=== PATIENT | male | born 1980 | race American Indian/Alaskan Native ===

== ENCOUNTER 2018-06-13 08:55 | Emergency (ER) | payer SELFPAY ==
--- NOTE | 2018-06-13 11:40 | Emergency Department Report ---
ED Headache HPI - General Chief Complaint: Headache Stated Complaint: MIGRANE FOR 2WKS/PAIN Time Seen by Provider: 06/13/18 11:28 Source: patient, family Exam Limitations: no limitations - History of Present Illness Initial Comments: She complained headache over the last 2 weeks that has been getting worse. She says that she she has light sensitivity and she is to be wearing sunglasses. Denies any nausea or vomiting. Headache is located on the right side of her head at her jehovah's witness and it is throbbing. She said it is 15/10 pain. She says she has a PCP but she could not get into see her primary care so she decided to come to the hospital. Patient reports that she has not had a headache in the past and that she is having some dizziness. No alleviating or exacerbating factor. She took [id number] medicine without any relief. Denies any numbness or tingling to extremities. Timing/Duration: increasing, waxing and waning, other (2 weeks) Quality: severe, achy, throbbing Head Injury Location: temporal (right jehovah's witness) Recent Head Trauma: no recent headache/trauma Modifying Factors: improves with: exposure to light, movement Associated Symptoms: vision changes (sensitivity to light). denies: confusion, fatigue, facial pain, flushing, loss of consciousness, nausea/vomiting, nasal congestion, nasal drainage, numbness in legs/feet, rash, seizures, sinus infection, stiff neck, weakness Allergies/Adverse Reactions: Allergies No Known Allergies Allergy (Unverified 06/13/18 11:41) Home Medications: Ambulatory Orders Acetaminophen/Codeine [Tylenol /Codeine # 3 tab] 1 tab PO Q6H PRN #14 tab Ibuprofen [Motrin] 800 mg PO Q8HR PRN #15 tablet 06/13/18 ED Review of Systems ROS: Stated complaint: MIGRANE FOR 2WKS/PAIN Other details as noted in HPI Constitutional: denies: chills, fever Eyes: other (sensitivity to light). denies: eye pain, eye discharge, vision change ENT: denies: ear pain, throat pain, congestion Respiratory: denies: cough, shortness of breath, SOB with exertion, SOB at rest , wheezing Cardiovascular: denies: chest pain, palpitations, edema, syncope Gastrointestinal: denies: abdominal pain, nausea, vomiting, diarrhea, hematemesis, hematochezia Musculoskeletal: denies: back pain, joint swelling, arthralgia, myalgia Skin: denies: rash, lesions Neurological: headache. denies: weakness, numbness, paresthesias, confusion, abnormal gait Psychiatric: anxiety. denies: depression ED Past Medical Hx - Past Medical History Previous Medical History?: No - Surgical History Past Surgical History?: Yes Hx Coronary Stent: No Hx Open Heart Surgery: No Hx Pacemaker: No Hx Internal Defibrillator: No Hx Cholecystectomy: No Hx Appendectomy: No Hx Breast Surgery: Yes Additional Surgical History: Plastic surgery - Family History Family history: hypertension - Social History Smoking Status: Never Smoker Substance Use Type: None - Medications Home Medications: Home Medications Medication Instructions Recorded Confirmed Last Taken Type Acetaminophen/Codeine [Tylenol 1 tab PO Q6H PRN #14 tab 06/13/18 Unknown Rx /Codeine # 3 tab] Ibuprofen [Motrin] 800 mg PO Q8HR PRN #15 tablet 06/13/18 Unknown Rx ED Physical Exam - General Limitations: No Limitations General appearance: alert, in no apparent distress - Head Head exam: Present: atraumatic, normocephalic, normal inspection - Expanded Head Exam Expanded Head exam: Absent: laceration, abrasion, contusion, hematoma, racoon eyes, orlando's sign, general tenderness, tenderness of temporal artery, CSF rhinorrhea , CSF otorrhea - Eye Eye exam: Present: normal appearance, PERRL, EOMI. Absent: nystagmus, periorbital swelling, periorbital tenderness Pupils: Present: normal accommodation - ENT ENT exam: Present: normal exam, normal orophraynx, mucous membranes moist, TM's normal bilaterally, normal external ear exam - Neck Neck exam: Present: normal inspection, full ROM. Absent: tenderness, lymphadenopathy - Respiratory Respiratory exam: Present: normal lung sounds bilaterally. Absent: respiratory distress, chest wall tenderness - Cardiovascular Cardiovascular Exam: Present: regular rate, normal rhythm, normal heart sounds. Absent: systolic murmur, diastolic murmur - GI/Abdominal GI/Abdominal exam: Present: soft, normal bowel sounds. Absent: distended, tenderness, guarding, rebound, rigid - Extremities Exam Extremities exam: Present: normal inspection, full ROM, normal capillary refill , other (No cce. + 2 pulses in all extremities, no neurovascular compromise). Absent: tenderness, pedal edema, joint swelling, calf tenderness - Back Exam Back exam: Present: normal inspection, full ROM. Absent: tenderness - Neurological Exam Neurological exam: Present: alert, oriented X3, normal gait, reflexes normal. Absent: motor sensory deficit - Expanded Neurological Exam Expanded Neurological exam: Absent: innattentive, memory loss-remote event, memory loss- recent event, ataxia, receptive aphasia, expressive aphasia, total aphasia, tremor, protecting the airway Patient oriented to: Present: person, place, time Speech: Present: fluid speech Cranial nerves: EOM's Intact: Normal, Gag Reflex: Normal, Tongue Deviation: Normal, Nystagmus: Normal, Facial Sensation: Normal Cerebellar function: Romberg: Normal Upper motor neuron: Pronator Drift: Normal, Sensory Extinction: Normal Sensory exam: Upper Extremity Light Touch: Normal, Upper Extremity Temperature: Normal, UE 2 Point Discrimination: Normal, Lower Extremity Light Touch: Normal, Lower Extremity Temperature: Normal, LE 2 Point Discrimination: Normal Motor strength exam: RUE: 5, LUE: 5, RLE: 5, LLE: 5 Best Eye Response ([place]): (4) open spontaneously Best Motor Response ([place]): (6) obeys commands Best Verbal Response ([place]): (5) oriented Morgan Total: 15 - Psychiatric Psychiatric exam: Present: normal affect, normal mood - Skin Skin exam: Present: warm, dry, intact, normal color. Absent: rash ED Course Vital Signs 06/13/18 06/13/18 06/13/18 09:08 12:01 12:02 Temperature 98.1 F Pulse Rate 74 Respiratory 18 16 16 Rate Blood Pressure 132/91 Blood Pressure [Right] O2 Sat by Pulse 98 Oximetry 06/13/18 06/13/18 06/13/18 12:32 13:01 14:20 Temperature Pulse Rate 63 Respiratory 18 18 18 Rate Blood Pressure Blood Pressure 118/92 [Right] O2 Sat by Pulse 98 Oximetry - Reevaluation(s) Reevaluation #1: 06/13/18 14:06 Patient received Fioricet 2 tablets by mouth, Decadron 10 mg IM and Toradol 60 mg IM in emergency room. She voices her pain has gone down. Reevaluation #2: 06/13/18 14:09 Patient reports that she still had headache so she was given [place] 5/325 2 tablets by mouth. ED Medical Decision Making - Radiology Data Radiology results: report reviewed CT scan of the head and brain without contrast dictated by radiologist and report reviewed by myself. Please see report below Patient: KRISTINA HOLLAND MR#: [id number] : 1980 Acct:[id number] Age/Sex: 37 / M ADM Date: 06/13/18 Loc: ED Attending Dr: Ordering Physician: MICKEY KUMAR Date of Service: 06/13/18 Procedure(s): CT head/brain wo con Accession Number(s): [id number] cc: MICKEY KUMAR FINAL REPORT EXAM: CT HEAD/BRAIN WO CON HISTORY: headache, nausea TECHNIQUE: CT of the head was performed without intravenous contrast. PRIORS: None. FINDINGS: The ventricles are normal in shape and position. The ventricles are nondilated. No intracranial hemorrhage, mass, mass effect, midline shift or evidence of acute ischemic infarct. The basilar cisterns are patent. The paranasal sinuses are clear. The extracranial soft tissues demonstrate no abnormality. The calvarium is intact. The orbits are intact. The mastoid air cells are clear. IMPRESSION: No acute intracranial abnormality. Transcribed By: MG Dictated By: OKSANA KHAN MD Electronically Authenticated By: OKSANA KHAN MD Signed Date/Time: 06/13/181318 DD/ 18 TD/TT: 06/13/181318 - Medical Decision Making 37-year-old female here report that she is having headache and that she try to make an appointment with her primary care doctor but she cannot get in today so she came to the emergency room. Diagnostics: CT scan of the head and brain without contrast with negative findings. This was dictated per radiologist's report reviewed myself. See detailed report in radiology section Assessment/plan 1: Headache -better after Fioricet 2 tablets by mouth, Decadron 10 mg IM and 5/ 325 2 tablets by mouth. Patient's given information on her CT scan, medication, diagnosis and need to follow up with her primary care and also neurologist. Patient voiced understanding and discharged home with her family in stable condition with prescription for Tylenol 3 and ibuprofen - Differential Diagnosis intracranial abnormality, sinusitis, simple headache Critical care attestation.: If time is entered above; I have spent that time in minutes in the direct care of this critically ill patient, excluding procedure time. ED Disposition Clinical Impression: Headache Qualifiers: Headache type: unspecified Headache chronicity pattern: unspecified pattern Intractability: not intractable Qualified Code(s): R51 - Headache Disposition: DC- TO HOME OR SELFCARE Is pt being admited?: No Does the pt Need Aspirin: No Condition: Stable Instructions: Acute Headache (ED) Additional Instructions: increase your fluid intake please do not drive or operate heavy [employer] while taking tylenol #3 Prescriptions: Acetaminophen/Codeine [Tylenol /Codeine # 3 tab] 1 tab PO Q6H PRN #14 tab PRN Reason: moderate to severe pain Ibuprofen [Motrin] 800 mg PO Q8HR PRN #15 tablet PRN Reason: pain Referrals: AZRA MATUTE MD [Staff Physician] - 06/15/18 PRIMARY CAREMD [Primary Care Provider] - 06/15/18
[2018-06-13] MEDS ORDERED: DECADRON IV STA (11:42)
[2018-06-13] MEDS ORDERED: FIORICET PO ONE (11:43)
[2018-06-13] MEDS ORDERED: TORADOL IM ONE (11:43)
--- NOTE | 2018-06-13 13:20 | Cat Scan Report ---
FINAL REPORT EXAM: CT HEAD/BRAIN WO CON HISTORY: headache, nausea TECHNIQUE: CT of the head was performed without intravenous contrast. PRIORS: None. FINDINGS: The ventricles are normal in shape and position. The ventricles are nondilated. No intracranial hemorrhage, mass, mass effect, midline shift or evidence of acute ischemic infarct. The basilar cisterns are patent. The paranasal sinuses are clear. The extracranial soft tissues demonstrate no abnormality. The calvarium is intact. The orbits are intact. The mastoid air cells are clear. IMPRESSION: No acute intracranial abnormality.
[2018-06-13] MEDS ORDERED: NORCO 5/325 PO ONE (14:08)
[2018-06-13 14:22] VITALS: BP 118/92
== END 2018-06-13 14:23 | disposition home or self-care (01) ==
LOC: ED 08:55
DX: R51 Headache (principal); H53.71 Glare sensitivity; F41.9 Anxiety disorder, unspecified
CPT/HCPCS: 70450; 96372; 96374; 99283; J1100; J1885

== ENCOUNTER 2021-03-13 15:58 | Emergency (ER) | payer SELFPAY ==
[2021-03-13 17:36] VITALS: BP 145/98
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
== END 2021-03-13 18:12 | disposition home or self-care (01) ==
LOC: ED 15:58
DX: S16.1XXA Strain of muscle, fascia and tendon at neck level, initial encounter (principal); Z98.890 Other specified postprocedural states; Z79.899 Other long term (current) drug therapy; V49.49XA Driver injured in collision with other motor vehicles in traffic accident, initial encounter; Y92.410 Unspecified street and highway as the place of occurrence of the external cause; Y93.89 Activity, other specified; Y99.8 Other external cause status
CPT/HCPCS: 99282